=== PATIENT | male | born 1975 | race Caucasian/White ===

== ENCOUNTER → 2018-02-20 | Outpatient (CLI) | payer OTHER ==
[~2018-02-20] MED LIST: ATIVAN 1MG T1 MG/TAB PO; BACTRIM DS 8001 TAB PO; COLACE 100100 MG/CAP PO; NO HOME MEDICATIONS; PERCR 7.5 PO
== END ==
LOC: SUN.DIA 01-06 13:53
DX: E11.9 Type 2 diabetes mellitus without complications (principal); E66.9 Obesity, unspecified
CPT/HCPCS: G0108